=== PATIENT | female | born 1960 | race Caucasian/White ===

== ENCOUNTER 2016-08-07 20:32 | Emergency (ER) | payer OTHER ==
[~2016-08-07] VITALS: Ht 172.7 cm; Wt 103.4 kg
[~2016-08-07 20:32] MED LIST: CELECOXIB200 MG PO; COLACE100 MG PO; ENDOCET 5-3251 EACH PO; EPITOL200 MG PO; FEOSOL325 MG PO; LEVOTHROXINE PO; LITHIUM CARBON300 M1 PO; LOVENOX40 MG/0.4 SC; PRAVASTATIN SOD40 MG PO; RISPERDAL1 MG PO; SYNTHROID75 MCG PO; VICODIN 5-3001 EACH PO
[2016-08-07 21:34] LABS: MCH 30.2 PG (29.0-34.0); MCHC 33.3 G/DL (30.0-36.0); MCV 90.7 FL (83-99); MEAN PLAT.VOLUME 9.8 uM^3 (9.5-12.4); PLATELET COUNT 256 K/uL (156-360); RBC DIS.WIDTH-CV 13.2 % (11.8-14.6); RED BLOOD COUNT 4.63 M/uL (3.80-5.20); WHITE BLOOD COUNT 9.5 K/uL (4.1-10.2)
[2016-08-07 21:54] LABS: CHLORIDE 109 mEq/L (99-109); POTASSIUM 3.8 mEq/L (3.7-5.4); SODIUM 143 mEq/L (136-147)
[2016-08-07 21:56] LABS: GLUCOSE 142 mg/dL (70-99)
[2016-08-07 21:58] LABS: ANION GAP 11 MEQ/L (2-14)
[2016-08-07 21:59] LABS: INTER. NORMALIZED RATIO 1.1; PROTHROMBIN TIME 10.7 (9.2-11.2); PTT 25.2 (25-32)
[2016-08-07 22:00] LABS: GFR ESTIMATE (CALCULATED) > 59 mL/min/
[2016-08-07 22:01] LABS: UREA NITROGEN (BUN) 16 mg/dL (9-23)
[2016-08-07] MEDS ORDERED: NAPROXEN500 MG PO (22:25)
[2016-08-07] MEDS ORDERED: VITAMIN D31000 UNIT PO (22:42)
[2016-08-07] MEDS ORDERED: TEGRETOL200 MG PO (22:44)
[2016-08-07 22:59] VITALS: BP 124/79
== END 2016-08-07 23:04 | disposition home or self-care (01) ==
LOC: EME 20:32
PROVIDERS: Physician Assistant
DX: I80.02 Phlebitis and thrombophlebitis of superficial vessels of left lower extremity (principal); Z86.718 Personal history of other venous thrombosis and embolism
CPT/HCPCS: 80048; 80178; 85027; 85610; 85730; 93971; 99281; 99285; J8540

== ENCOUNTER 2017-01-30 21:08 | Emergency (ER) | payer OTHER ==
[~2017-01-30] VITALS: Ht 172.7 cm; Wt 106.3 kg
[~2017-01-30 21:08] MED LIST changes: +NAPROXEN500 MG PO; +TEGRETOL200 MG PO; +VITAMIN D31000 UNIT PO
[2017-01-30 23:37] VITALS: BP 126/60
== END 2017-01-30 23:38 | disposition home or self-care (01) ==
LOC: EME 21:08
DX: I80.01 Phlebitis and thrombophlebitis of superficial vessels of right lower extremity (principal); Z86.718 Personal history of other venous thrombosis and embolism
CPT/HCPCS: 93971; 99281; 99282

== ENCOUNTER 2017-11-04 22:59 | Emergency (ER) | payer OTHER ==
[~2017-11-04] VITALS: Ht 170.2 cm; Wt 92.2 kg
[2017-11-05] MEDS ORDERED: MOBIC7.5 MG PO (01:04)
[2017-11-05] MEDS ORDERED: NORCO 5/3251 TABLET PO (01:04)
[2017-11-05 01:09] VITALS: BP 118/62
== END 2017-11-05 01:10 | disposition home or self-care (01) ==
LOC: EME 22:59
DX: M79.604 Pain in right leg (principal); M79.651 Pain in right thigh; M25.561 Pain in right knee; M17.11 Unilateral primary osteoarthritis, right knee; Z86.718 Personal history of other venous thrombosis and embolism; W01.0XXA Fall on same level from slipping, tripping and stumbling without subsequent striking against object, initial encounter
CPT/HCPCS: 73564; 99281; 99284; J3010